=== PATIENT | male | born 1950 | race Caucasian/White ===

== ENCOUNTER → 2016-03-31 | Outpatient (CLI) | payer MEDICARE, BC ==
[~2016-03-31] MED LIST: CIALIS20 MG PO; DEPO-TESTOS200 MG/M1 IM; DUO-KAPS1 CAP PO; FLONASE0.05 MG/AC NS; GLUCOSAMINE & C1 TA3 PO; PREVACID 30MG30 M1 PO; PROZAC10 MG PO; ZOCOR40 MG PO
== END ==
LOC: RAD 08:58
DX: Z13.820 Encounter for screening for osteoporosis (principal); M81.0 Age-related osteoporosis without current pathological fracture

== ENCOUNTER → 2018-02-04 | Outpatient (CLI) | payer MEDICARE, BC ==
[~2018-02-04] VITALS: Ht 170.2 cm; Wt 72.3 kg
[~2018-02-04] MED LIST changes: +MULTIVITAMIN1 SGL PO; +MUPIROCIN2% TP; +PROAIR HFA0.09 MG/AC IH; +PULMICORT180 MCG/Ac IH; +RT ALBUTEROL CC18 GM IH; +SINGULAIR PO; +TRIAMCINOLONE A15 G3 TP; +TUMS REGULAR S500 MG PO; +VITAMIN B122500 MC2 PO; +VITAMIN D22000 IU PO; +ZYRTEC ALLERGY10 MG PO
[2018-02-04 09:11] LABS: ALBUMIN 4.5 g/dL (3.5-5.0); CALCIUM 9.3 mg/dL (8.4-10.2); POTASSIUM 4.3 mmol/L (3.6-5.0); TOTAL BILIRUBIN 0.9 mg/dL (0.2-1.3); TOTAL PROTEIN 7.7 g/dL (6.3-8.2)
[2018-02-04 09:18] LABS: BASO # 0.1 (0.02-0.10); EOS # 0.3 (0.04-0.40); EOS % 4.3 % (0.0-4.0); HEMATOCRIT 52.8 % (42.0-52.0); LYMPH# 1.4 (1.50-4.00); MEAN CELL VOLUME 99 fl (78-100); MEAN CORPUSCULAR HEMOGLOBIN 32 pg (27-31); MEAN CORPUSCULAR HGB CONC 32 g/dL (33-37); MEAN PLATELET VOLUME 10.4 fl (7.4-10.4); MONO # 0.7 (0.20-0.80); NEU # 4.8 (1.40-6.50); PLATELET COUNT 231 K/mm3 (130-400); RED BLOOD COUNT 5.32 M/mm3 (4.20-5.60); WHITE BLOOD COUNT 7.3 K/mm3 (4.8-10.8)
[2018-02-04 09:24] VITALS: BP 124/78
[2018-02-04 10:27] LABS: ERYTHROCYTE SEDIMENTATION RATE 3 mm/hr (0-20)
== END ==
LOC: AMSURD 08:40
PROVIDERS: Internal Medicine
DX: Z12.5 Encounter for screening for malignant neoplasm of prostate (principal); Z12.11 Encounter for screening for malignant neoplasm of colon; Z00.00 Encounter for general adult medical examination without abnormal findings; E06.3 Autoimmune thyroiditis; E23.0 Hypopituitarism; D75.89 Other specified diseases of blood and blood-forming organs; E78.5 Hyperlipidemia, unspecified; M81.0 Age-related osteoporosis without current pathological fracture; G47.33 Obstructive sleep apnea (adult) (pediatric); N52.9 Male erectile dysfunction, unspecified; I49.3 Ventricular premature depolarization

== ENCOUNTER → 2018-03-23 | Outpatient (CLI) | payer MEDICARE, BC ==
[2018-02-04 09:24] VITALS: BP 124/78
== END ==
LOC: RAD 03-22 10:00 → MAMMO 03-22 10:00 → RAD 12:43
DX: Z13.820 Encounter for screening for osteoporosis (principal); M81.0 Age-related osteoporosis without current pathological fracture; M85.852 Other specified disorders of bone density and structure, left thigh; M85.88 Other specified disorders of bone density and structure, other site

== ENCOUNTER → 2018-09-07 | Outpatient (CLI) | payer MEDICARE, BC ==
[2018-02-04 09:24] VITALS: BP 124/78
== END ==
LOC: LAB 11:01 → RAD 11:01
DX: N20.0 Calculus of kidney (principal)
CPT/HCPCS: Q9967

== ENCOUNTER → 2019-09-29 | Outpatient (CLI) | payer MEDICARE, BC ==
[2018-02-04 09:24] VITALS: BP 124/78
== END ==
LOC: LAB 10:36
DX: R05 Cough (principal); R43.2 Parageusia

== ENCOUNTER → 2020-01-22 | Outpatient (CLI) | payer MEDICARE, BC ==
[2018-02-04 09:24] VITALS: BP 124/78
== END ==
LOC: LAB 09:25
DX: Z20.828 Contact with and (suspected) exposure to other viral communicable diseases (principal)

== ENCOUNTER → 2020-01-25 | Day surgery (SDC) | payer MEDICARE, BC ==
[2018-02-04 09:24] VITALS: BP 124/78
== END ==
LOC: MSO 08:16
DX: K21.9 Gastro-esophageal reflux disease without esophagitis (principal); K22.2 Esophageal obstruction; Z88.8 Allergy status to other drugs, medicaments and biological substances; Z79.82 Long term (current) use of aspirin; E06.3 Autoimmune thyroiditis; G47.33 Obstructive sleep apnea (adult) (pediatric); F41.9 Anxiety disorder, unspecified; N52.9 Male erectile dysfunction, unspecified; E23.0 Hypopituitarism
CPT/HCPCS: 00813; C1769; J2704; J7120

== ENCOUNTER → 2020-02-12 | Outpatient (CLI) | payer MEDICARE, BC ==
[2018-02-04 09:24] VITALS: BP 124/78
[2020-02-12 08:33] LABS: HEMATOCRIT 50.7 % (42.0-52.0); HEMOGLOBIN 16.3 g/dL (13.5-18.0); MEAN CELL VOLUME 98 fl (78-100); MEAN CORPUSCULAR HEMOGLOBIN 31 pg (27-31); MEAN CORPUSCULAR HGB CONC 32 g/dL (33-37); MEAN PLATELET VOLUME 9.5 fl (7.4-10.4); PLATELET COUNT 246 K/mm3 (130-400); RED BLOOD COUNT 5.19 M/mm3 (4.20-5.60); RED CELL DISTRIBUTION WIDTH 13.4 % (11.5-14.5); WHITE BLOOD COUNT 5.4 K/mm3 (4.8-10.8)
[2020-02-12 08:51] LABS: ALBUMIN 4.1 g/dL (3.4-4.8); POTASSIUM 4.5 mmol/L (3.5-5.1)
[2020-02-12 08:53] LABS: CALCIUM 9.4 mg/dL (8.3-10.5)
[2020-02-12 08:54] LABS: TOTAL PROTEIN 7.1 g/dL (6.2-8.1)
[2020-02-12 08:56] LABS: TOTAL BILIRUBIN 0.6 mg/dL (0.2-1.2)
[2020-02-12 09:01] LABS: MAGNESIUM 2.04 mg/dL (1.60-2.60)
[2020-02-12 09:12] LABS: NEUTROPHILS 60 % (42-75)
[2020-02-12 09:13] LABS: LYMPHOCYTE 24 % (20-51); MONOCYTE 13 % (3-10)
[2020-02-12 09:34] LABS: ERYTHROCYTE SEDIMENTATION RATE 11 mm/hr (0-20)
== END ==
LOC: LAB 08:12
PROVIDERS: Internal Medicine
DX: Z12.5 Encounter for screening for malignant neoplasm of prostate (principal); E78.2 Mixed hyperlipidemia; E23.0 Hypopituitarism; M81.0 Age-related osteoporosis without current pathological fracture

== ENCOUNTER → 2020-04-10 | Outpatient (CLI) | payer MEDICARE, BC ==
[2018-02-04 09:24] VITALS: BP 124/78
== END ==
LOC: RAD 08:27 → MAMMO 08:30 → RAD 08:30
DX: Z13.820 Encounter for screening for osteoporosis (principal); M81.0 Age-related osteoporosis without current pathological fracture

== ENCOUNTER → 2020-07-01 | Outpatient (CLI) | payer MEDICARE, BC ==
[2018-02-04 09:24] VITALS: BP 124/78
== END ==
LOC: RAD 11:08
DX: M79.605 Pain in left leg (principal)

== ENCOUNTER → 2021-02-14 | Outpatient (CLI) | payer MEDICARE, BC ==
[2021-02-14 09:48] LABS: ALBUMIN 4.3 g/dL (3.4-4.8); POTASSIUM 4.6 mmol/L (3.5-5.1)
[2021-02-14 09:49] LABS: CALCIUM 9.4 mg/dL (8.3-10.5)
[2021-02-14 09:50] LABS: BASO # 0.05 K/mm3 (0.02-0.10); EOS # 0.28 K/mm3 (0.04-0.40); EOS % 4.6 % (0.0-4.0); HEMATOCRIT 49.5 % (42.0-52.0); HEMOGLOBIN 15.9 g/dL (13.5-18.0); LYMPH# 1.54 K/mm3 (1.50-4.00); MEAN CELL VOLUME 100 fl (78-100); MEAN CORPUSCULAR HEMOGLOBIN 32 pg (27-31); MEAN CORPUSCULAR HGB CONC 32 g/dL (33-37); MEAN PLATELET VOLUME 9.5 fl (7.4-10.4); MONO # 0.58 K/mm3 (0.20-0.80); NEU # 3.58 K/mm3 (1.40-6.50); PLATELET COUNT 235 K/mm3 (130-400); RED BLOOD COUNT 4.94 M/mm3 (4.20-5.60); RED CELL DISTRIBUTION WIDTH 12.1 % (11.5-14.5)
[2021-02-14 09:51] LABS: TOTAL PROTEIN 7.6 g/dL (6.2-8.1)
[2021-02-14 09:52] LABS: TOTAL BILIRUBIN 0.8 mg/dL (0.2-1.2)
[2021-02-14 09:57] LABS: MAGNESIUM 1.97 mg/dL (1.60-2.60)
[2021-02-14 10:39] LABS: ERYTHROCYTE SEDIMENTATION RATE 13 mm/hr (0-20)
[2021-02-15 02:00] LABS: TESTOSTERONE >1500 ng/dL (221-716)
== END ==
LOC: LAB 09:01
PROVIDERS: Internal Medicine
DX: Z12.5 Encounter for screening for malignant neoplasm of prostate (principal); E78.2 Mixed hyperlipidemia; M81.0 Age-related osteoporosis without current pathological fracture; E53.8 Deficiency of other specified B group vitamins; E23.0 Hypopituitarism

== ENCOUNTER → 2021-08-01 | Outpatient (CLI) | payer MEDICARE, BC | LOC: RAD 13:31 | DX: R09.89 Other specified symptoms and signs involving the circulatory and respiratory systems (principal) ==

== ENCOUNTER → 2021-10-16 | Outpatient (CLI) | payer MEDICARE, BC | LOC: RAD 11:04 | DX: R05.9 Cough, unspecified (principal) ==

== ENCOUNTER → 2022-04-14 | Outpatient (CLI) | payer MEDICARE, BC ==
[2022-04-14 08:59] LABS: ALBUMIN 4.1 g/dL (3.4-4.8); POTASSIUM 4.5 mmol/L (3.5-5.1)
[2022-04-14 09:00] LABS: CALCIUM 9.3 mg/dL (8.3-10.5)
[2022-04-14 09:01] LABS: TOTAL PROTEIN 7.1 g/dL (6.2-8.1)
[2022-04-14 09:03] LABS: TOTAL BILIRUBIN 0.9 mg/dL (0.2-1.2)
== END ==
LOC: RAD 08:09 → MAMMO 08:09
PROVIDERS: Internal Medicine
DX: M81.0 Age-related osteoporosis without current pathological fracture (principal); E78.2 Mixed hyperlipidemia

== ENCOUNTER → 2022-06-02 | Outpatient (CLI) | payer MEDICARE, BC | LOC: RAD 11:18 | DX: M79.605 Pain in left leg (principal) ==

== ENCOUNTER 2023-11-24 08:52 | Outpatient (RCR) | payer MEDICARE, BC ==
[~2023-11-24] VITALS: Ht 175.3 cm; Wt 73.6 kg
[2023-11-24 09:15] VITALS: BP 162/89
[2023-11-24] MEDS ORDERED: Testosterone Cyp in Oil 200 MG/ML 1 ML VIAL IM ONE (09:15)
[2023-12-08] MEDS ORDERED: VITAMIN C60 MG PO (08:16)
[2023-12-08] MEDS ORDERED: ASPIRIN 81M81 MG/TA2 PO (08:16)
[2023-12-08] MEDS ORDERED: PRILOSEC 20MG20 MG PO (08:17)
[2023-12-08] MEDS ORDERED: NOVAPLUS DE100 MG/ML IM (08:20)
== END 2023-12-06 | disposition home or self-care (01) ==
LOC: AMSURD
DX: E23.0 Hypopituitarism (principal)
CPT/HCPCS: J1071

== ENCOUNTER 2024-01-05 07:50 | Outpatient (RCR) | payer MEDICARE, BC ==
[2023-12-08 08:31] VITALS: BP 160/86
[2023-12-22 07:58] VITALS: BP 143/80
[~2024-01-05] VITALS: Ht 175.3 cm; Wt 73.6 kg
[~2024-01-05 07:50] MED LIST changes: +ASPIRIN 81M81 MG/TA2 PO; +NOVAPLUS DE100 MG/ML IM; +PRILOSEC 20MG20 MG PO; +Testosterone Cyp in Oil 200 MG/ML 1 ML VIAL IM ONE; +VITAMIN C60 MG PO
[2024-01-05] MEDS ORDERED: Testosterone Cyp in Oil 200 MG/ML 1 ML VIAL IM ONE (08:00)
[2024-01-05 08:03] VITALS: BP 142/91
== END 2024-01-06 | disposition home or self-care (01) ==
LOC: AMSURD
DX: E23.0 Hypopituitarism (principal); Z79.899 Other long term (current) drug therapy
CPT/HCPCS: J1071

== ENCOUNTER → 2024-03-30 | Outpatient (CLI) | payer MEDICARE, BC ==
[~2024-03-30] MED LIST changes: -Testosterone Cyp in Oil 200 MG/ML 1 ML VIAL IM ONE
[2024-03-30 08:44] LABS: HEMOGLOBIN 17.1 g/dL (13.5-18.0); MEAN CELL VOLUME 101 fl (78-100); MEAN CORPUSCULAR HEMOGLOBIN 32 pg (27-31); MEAN CORPUSCULAR HGB CONC 32 g/dL (33-37)
[2024-03-30 08:48] LABS: ALBUMIN 4.6 g/dL (3.4-4.8)
[2024-03-30 08:49] LABS: CALCIUM 10.1 mg/dL (8.3-10.5)
[2024-03-30 08:50] LABS: BASO # 0.03 K/mm3 (0.02-0.10); EOS # 0.23 K/mm3 (0.04-0.40); EOS % 3.9 % (0.0-4.0); HEMATOCRIT 53.7 % (42.0-52.0); LYMPH# 1.49 K/mm3 (1.50-4.00); MEAN PLATELET VOLUME 10.5 fl (7.4-10.4); MONO # 0.59 K/mm3 (0.20-0.80); NEU # 3.57 K/mm3 (1.40-6.50); PLATELET COUNT 197 K/mm3 (130-400); RED BLOOD COUNT 5.32 M/mm3 (4.20-5.60); RED CELL DISTRIBUTION WIDTH 12.5 % (11.5-14.5); TOTAL PROTEIN 8.8 g/dL (6.2-8.1); WHITE BLOOD COUNT 5.9 K/mm3 (4.8-10.8)
[2024-03-30 08:52] LABS: TOTAL BILIRUBIN 0.5 mg/dL (0.2-1.2)
[2024-03-30 08:57] LABS: MAGNESIUM 2.09 mg/dL (1.60-2.60)
[2024-03-30 22:57] LABS: TESTOSTERONE 576 ng/dL (221-716)
== END ==
LOC: LAB 08:20
PROVIDERS: Internal Medicine
DX: E53.8 Deficiency of other specified B group vitamins (principal); J45.909 Unspecified asthma, uncomplicated; E23.0 Hypopituitarism; E78.2 Mixed hyperlipidemia; M81.0 Age-related osteoporosis without current pathological fracture; R73.9 Hyperglycemia, unspecified

== ENCOUNTER → 2024-04-17 | Outpatient (CLI) | payer MEDICARE, BC | LOC: LAB 08:48 | DX: Z12.5 Encounter for screening for malignant neoplasm of prostate (principal) ==

== ENCOUNTER → 2024-04-27 | Outpatient (CLI) | payer MEDICARE, BC | LOC: MAMMO 08:00 → RAD 08:04 | DX: Z13.820 Encounter for screening for osteoporosis (principal); M81.0 Age-related osteoporosis without current pathological fracture; E23.0 Hypopituitarism; E55.9 Vitamin D deficiency, unspecified; Z84.89 Family history of other specified conditions ==

== ENCOUNTER → 2024-04-27 | Outpatient (CLI) | payer MEDICARE, BC ==
[~2024-04-27] VITALS: Ht 175.3 cm; Wt 73.6 kg
[~2024-04-27] MED LIST changes: +Testosterone Cyp in Oil 200 MG/ML 1 ML VIAL IM ONE
[2024-04-27 08:42] VITALS: BP 153/81
== END ==
LOC: AMSURD 08:30
DX: E23.0 Hypopituitarism (principal)
CPT/HCPCS: J1071